=== PATIENT | male | born 1955 | race Caucasian/White ===

== ENCOUNTER → 2017-01-19 | Outpatient (CLI) | payer OTHER ==
[~2017-01-19] MED LIST: CELEBREX200 MG PO; CIPRO500 MG PO; FLAGYL500 MG PO; FLOMAX 0.4 MG0.4 MG PO; MONTELUKAST SOD10 MG PO
== END ==
LOC: KOH-I 16:04
DX: S13.100A Subluxation of unspecified cervical vertebrae, initial encounter (principal); M54.12 Radiculopathy, cervical region; R29.2 Abnormal reflex; M50.11 Cervical disc disorder with radiculopathy, high cervical region; M50.123 Cervical disc disorder at C6-C7 level with radiculopathy
CPT/HCPCS: 72141

== ENCOUNTER → 2020-09-24 | Outpatient (CLI) | payer BC | LOC: US 09-20 11:00 | DX: I86.1 Scrotal varices (principal); N50.3 Cyst of epididymis; N43.3 Hydrocele, unspecified; R93.89 Abnormal findings on diagnostic imaging of other specified body structures | CPT/HCPCS: 76870 ==

== ENCOUNTER → 2021-07-22 | Day surgery (SDC) | payer BC ==
[~2021-07-22] MED LIST changes: +HYDROCHLOROTH12.5 M1 PO; +LEVOTHYROXINE25 MC1 PO; +OMEGA 3 1,0001 EACH PO; +TRAMADOL HCL50 MG PO; +TYLENOL 8 HOUR650 MG PO
== END | disposition home or self-care (01) ==
LOC: OR 06:08
DX: Z12.11 Encounter for screening for malignant neoplasm of colon (principal); K63.89 Other specified diseases of intestine; K57.30 Diverticulosis of large intestine without perforation or abscess without bleeding; I10 Essential (primary) hypertension; E03.8 Other specified hypothyroidism; M06.9 Rheumatoid arthritis, unspecified; F17.200 Nicotine dependence, unspecified, uncomplicated; Z87.19 Personal history of other diseases of the digestive system; Z86.010 Personal history of colon polyps; Z20.822 Contact with and (suspected) exposure to COVID-19
CPT/HCPCS: J2001; J2704; J7030